=== PATIENT | male | born 1935 | race Caucasian/White ===

== ENCOUNTER 2018-03-11 21:02 | Emergency (ER) | payer MEDICARE, BC ==
[2018-03-11] MEDS ORDERED: Acetaminophen 500 MG TAB ONE (21:30)
[2018-03-11] MEDS ORDERED: Cyclobenzaprine 10 MG TAB ONE (21:30)
--- NOTE | 2018-03-11 22:01 | RAD ---
THORACIC SPINE RADIOGRAPH THREE VIEWS 03/11/18 PROVIDED CLINICAL HISTORY: Back pain. FINDINGS: Thoracic alignment appears normal. Thoracic vertebral body heights appear preserved. Multilevel thora cic degenerative changes are seen. IMPRESSION: No radiographic evidence for an acute osseous abnormality. POS: [facility]
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
[2018-03-11] MEDS ORDERED: Ketorolac Tromethamine 30 MG/ML VIAL ONE (22:09)
== END 2018-03-11 22:35 | disposition home or self-care (01) ==
LOC: SCSER 21:02
DX: M54.6 Pain in thoracic spine (principal); I10 Essential (primary) hypertension; V89.2XXA Person injured in unspecified motor-vehicle accident, traffic, initial encounter
CPT/HCPCS: 72072; 72100; 96372; J1885

== ENCOUNTER 2018-05-15 14:15 | Emergency (ER) | payer MEDICARE, BC ==
[2018-05-15] MEDS ORDERED: Bupivacaine 0.5% 10 ML VIAL ONE (14:49)
--- NOTE | 2018-05-15 15:04 | RAD ---
THREE VIEWS OF THE RIGHT HAND: COMPARISON: None. HISTORY: Right thumb laceration/amputation. FINDINGS: Three views of the right thumb show soft tissue swelling of the distal aspect of the thumb. There ap pears to be a fracture of the distal tuft of the distal phalanx of the thumb. No radiopaque foreign body is seen. No degenerative changes are present. IMPRESSION: Pelvic fracture of the distal phalanx of the thumb. POS: [facility]
[2018-05-15] MEDS ORDERED: Adacel (T-DAP) 0.5 ML SYRINGE ONE (15:36)
[2018-05-15] MEDS ORDERED: CEFAZOLIN 1 GM VIAL ONE (15:37)
== END 2018-05-15 16:35 | disposition home or self-care (01) ==
LOC: ERS 14:15
DX: S68.511A Complete traumatic transphalangeal amputation of right thumb, initial encounter (principal); W31.2XXA Contact with powered woodworking and forming machines, initial encounter
CPT/HCPCS: 90471; 90715; 96372; J0690; J3490

== ENCOUNTER 2019-04-27 10:08 | Outpatient (CLI) | payer MEDICARE, BC ==
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
== END 2019-04-27 10:09 | disposition home or self-care (01) ==
LOC: BICRAD 10:08
PROVIDERS: ATTEND Family Medicine
DX: M79.604 Pain in right leg (principal)

== ENCOUNTER 2022-02-19 08:23 | Observation (INO) | payer MEDICARE, BC ==
[2022-02-19 09:15] LABS: #Eosinphils 0.1 thou/uL (0.0-0.7); #Lymphocytes 1.8 thou/uL (1.20-3.40); #Monocytes 0.5 thou/uL (0.11-0.59); #Neutrophils 3.3 thou/uL (1.40-6.50); %Basophils 0.5 % (0.0-1.0); %Eosinophils 2.3 % (0.0-10.0); %Lymphocytes 30.7 % (21.0-51.0); %Monocytes 9.4 % (0.0-10.0); %Neutrophils 57.2 % (42.0-75.0); Hemoglobin 13.7 g/dL (14.0-18.0); Mean Corpuscular HGB CONC 31.5 g/dL (32.0-36.0); Mean Corpuscular Volume 98.4 fl (78.0-98.0); Mean Platelet Volume 6.8 fL (7.4-10.4); Platelet Count 258 10x3/uL (130-400); RBC Distribution Width 13.2 % (11.5-14.5); Red Blood Cell (RBC) Count 4.43 mill/uL (4.70-6.10); White Blood Cell (WBC) Count 5.8 10x3/uL (4.8-10.8)
[2022-02-19 09:43] LABS: ALT (SGPT) 20 U/L (8-55); AST (SGOT) 30 U/L (5-34); Albumin 4.1 g/dL (3.4-4.8); Alkaline Phosphatase 46 U/L (40-110); Anion Gap 15 mmol/L (10-20); BUN (Urea Nitrogen) 18 mg/dL (8.4-25.7); Bilirubin, Total 0.5 mg/dL (0.2-1.2); Calc. Creatinine Clearance 0 mL/min (70-130); Calcium 10.1 mg/dL (7.8-10.44); Carbon Dioxide 24 mmol/L (23-31); Chloride 105 mmol/L (98-107); Estimated GFR 84; Globulin 3.9 g/dL (2.4-3.5); Glucose 123 mg/dL (83-110); Potassium 4.4 mmol/L (3.5-5.1); Sodium 140 mmol/L (136-145)
[2022-02-19 10:38] LABS: Bacteria/HPF None Seen HPF (None Seen); Bilirubin Negative (Negative); Blood, Urine Negative (Negative); Clarity Clear (Clear); Glucose, Urine (Dipstick) Normal (Negative); Ketone, Urine Negative (Negative); Leukocyte 25 Leu/uL (Negative); Nitrite Negative (Negative); Protein, Urine (Dipstick) Negative (Neg-Trace); RBC/HPF 0-3 HPF (0-3); Squamous Epithelial None Seen HPF (0-3); Urobilinogen Normal mg/dL (Less than 2); WBC/HPF 0-3 HPF (0-3); pH, Urine 5.5 (5.0-9.0)
[2022-02-19 11:22] LABS: PTT 30.8 sec (22.9-36.1); Prothrombin Time 13.2 sec (12.0-14.7)
[2022-02-19] MEDS ORDERED: Iopamidol-370 76% 500 ML 1 ML ONE (11:52)
[2022-02-19] MEDS ORDERED: Meclizine HCl 25 MG TAB PO PRN (12:38)
[2022-02-19] MEDS ORDERED: BEER 1 CAN PO SCH (21:00)
[2022-02-19] MEDS ORDERED: Atorvastatin Calcium 40 MG TAB PO SCH (21:00)
[2022-02-20] MEDS ORDERED: Multivitamin W/ Minerals 1 TAB PO SCH (09:00)
[2022-02-20] MEDS ORDERED: Thiamine 100 MG TAB PO SCH (09:00)
[2022-02-20] MEDS ORDERED: Aspirin 81 mg Enteric Coated Tablet PO SCH (09:00)
[2022-02-20] MEDS ORDERED: Enoxaparin Sodium 40 MG/0.4 ML SYRINGE SC SCH (09:00)
[2022-02-20] MEDS ORDERED: Folic Acid 1 MG TAB PO SCH (09:00)
== END 2022-02-19 16:33 | disposition home or self-care (01) ==
LOC: ERS 08:23 → ERHOLD 10:56
PROVIDERS: ADMIT Internal Medicine; ATTEND Internal Medicine
DX: R42 Dizziness and giddiness (principal); G93.89 Other specified disorders of brain; I45.10 Unspecified right bundle-branch block; J34.1 Cyst and mucocele of nose and nasal sinus; J32.9 Chronic sinusitis, unspecified; Z87.891 Personal history of nicotine dependence
CPT/HCPCS: 36415; 70450; 70496; 70498; 70551; 71045; 80053; 81003; 81015; 83036; 84443; 84484; 85025; 85610; 85730; 93005; Q9967

== ENCOUNTER 2022-05-01 10:17 | Day surgery (SDC) | payer MEDICARE, BC ==
[~2022-05-01 10:17] MED LIST: ADMIXTURE FEE IVPB SCH; PRIVIGEN IVPB SCH
[2022-05-01 15:45] VITALS: BP 137/64; TEMP 98.5
== END 2022-05-01 14:00 | disposition home or self-care (01) ==
LOC: ONC/OP 10:17
PROVIDERS: ATTEND Psychiatry & Neurology Neurology
DX: G37.8 Other specified demyelinating diseases of central nervous system (principal)
CPT/HCPCS: 96365; 96366; J1459

== ENCOUNTER 2022-05-29 10:21 | Day surgery (SDC) | payer MEDICARE, BC ==
[2022-05-29 13:28] VITALS: BP 143/65; TEMP 98.1
== END 2022-05-29 14:45 | disposition home or self-care (01) ==
LOC: ONC/OP 10:21
PROVIDERS: ATTEND Psychiatry & Neurology Neurology
DX: G37.8 Other specified demyelinating diseases of central nervous system (principal); G61.81 Chronic inflammatory demyelinating polyneuritis
CPT/HCPCS: 96365; 96366; J1459